=== PATIENT | male | born 1985 | race Hispanic/Latino ===

== ENCOUNTER 2021-06-01 08:06 | Emergency (ER) | payer SELFPAY ==
--- NOTE | ~2021-06-01 | XR_ITS ---
EXAMINATION: XR chest 1V portable INDICATION: Right-sided chest pain TECHNIQUE: Portable AP chest at 1010 hours COMPARISON: None available FINDINGS: The lungs are free of acute opacities. There is no pleural effusion or pneumothorax. The ca rdiomediastinal silhouette is normal. IMPRESSION: 1. No acute cardiopulmonary abnormality. Reviewed, dictated and finalized at location A. ING SAW OPERATOR
--- NOTE | ~2021-06-01 | CT_ITS ---
EXAMINATION: CT abdomen pelvis w con DATE: 06/01/2021 12:45 INDICATION: Right upper quadrant abdominal pain. Left back pain. TECHNIQUE: Computed tomography (CT) of the abdomen and pelvis was performed with 100 mL Omnipaque 350 intravenous contrast. Automated exposure control and iterative reconstruction technique were employe d. The dose-length product was 1086.76 mGy-cm. COMPARISON: None. FINDINGS: The visualized portions of the lung bases demonstrate mild atelectasis. No pleural effusion . The heart size is normal. No pericardial effusion. There is diffuse hepatic steatosis. The gallblad narinder, spleen, pancreas, adrenal glands, and kidneys are normal. There are no dilated loops of bowel. T he appendix is normal. There are no pathologically enlarged lymph nodes. There is no free intraperito gordon fluid. There is mild thoracolumbar spondylosis. IMPRESSION: 1. Diffuse hepatic steatosis. Reviewed, dictated and finalized at location A. NG CUTTER
[2021-06-01 08:29] VITALS: BP 142/94; PULSE 80; RESP 18; TEMP 36.8; O2SAT 97
[2021-06-01] MEDS: KETOROLAC 30 MG/ML VIAL (*BKC) IV PUSH (10:14)
[2021-06-01] MEDS: ONDANSETRON INJ 4 MG/2 ML VIAL IV PUSH (10:15)
[2021-06-01] MEDS: FAMOTIDINE 20 MG/2 ML VIAL IV PUSH (10:15)
[2021-06-01 10:23] LABS: Basophils Percent Auto 0.3 % (0.2-1.2); Eosinophils Absolute Auto 0.1 K/mm3 (0-0.3); Eosinophils Percent Auto 0.7 % (0-4.4); Hematocrit 42.5 % (42.0-52.0); Immature Granulocyte Absolute 0.03 K/mm3 (0.00-0.031); Immature Granulocyte Percent A 0.3 % (0-0.5); Lymphocytes Absolute Auto 2.94 K/mm3 (0.9-3.2); Lymphocytes Percent Auto 31.1 % (18.3-44.2); Mean Corpuscular HGB Conc 35.3 g/dl (32-36); Mean Corpuscular Hemoglobin 30.9 pg (26-34); Mean Corpuscular Volume 87.4 fl (80-100); Mean Platelet Volume 9.7 fl (7.4-10.4); Monocytes Absolute Auto 0.6 K/mm3 (0.1-0.6); Monocytes Percent Auto 6.8 % (2.6-8.5); Neutrophils Absolute Auto 5.7 K/mm3 (1.3-6.7); Neutrophils Percent Auto 60.8 % (45.5-73.1); Platelet Count Result 217 k/mm3 (150-375); Red Blood Count 4.86 M/mm3 (4.6-6.20); Red Cell Distribution Width 12.7 % (11.5-14.5); White Blood Count 9.5 K/mm3 (4.5-10.0)
[2021-06-01 10:35] LABS: Alanine Aminotransferase 102 U/L (4-50); Albumin Level 4.5 g/dL (3.5-5.1); Alkaline Phosphatase 76 U/L (38-126); Anion Gap 10 mmol/L (8-16); Aspartate Amino Transferase 68 U/L (17-59); Bilirubin,Total 1.2 mg/dL (0.2-1.3); Blood Urea Nitrogen 9 mg/dL (9-20); Calcium 8.6 mg/dL (8.4-10.2); Carbon Dioxide 28 mmol/L (22-30); Chloride 101 mmol/L (98-107); Estimated Glomerular Filt Rate > 60; Glucose 229 mg/dL (65-110); Sodium 139 mmol/L (137-145)
[2021-06-01 10:43] LABS: Add Urine Microscopic? YES; Appearance Urine Clear (Clear); Bilirubin Urine Negative (Negative); Color Urine Yellow (Yellow); Glucose Urine UA 3+ mg/dL (Negative); Ketones Urine Negative (Negative); Leukocyte Esterase Ur Negative LEU/UL (Negative); Mucus Urine Few /lpf; Nitrate Urine Negative (Negative); Protein Urine 1+ mg/dL (Negative); RBC Urine 0-2 /hpf (0-2); Specific Grav Ur 1.027 (1.001-1.035); Squamous Epithelial Cell Urine Rare /hpf (Few)
[2021-06-01 10:44] LABS: Blood Urine Negative (Negative)
--- NOTE | 2021-06-01 11:19 | ED.GENADULT ---
HPI - General Adult General Chief complaint: Back Pain/Injury Stated complaint: Flank pain Time Seen by Provider: 06/01/21 09:25 Source: patient and RN notes reviewed Mode of arrival: ambulatory Limitations: no limitations History of Present Illness HPI narrative: Patient is a 36-year-old male who presents to emergency department for evaluation of right CVA region discomfort that began yesterday on satted and then resolved and then intensified again this morning he denies any URI symptoms abdominal discomfort urinary issues denies similar occurrence in the past presents nondistressed has not taken anything for his symptoms on arrival he appears uncomfortable but not distressed he denies any radiation of the pain Related Data Allergies Allergy/AdvReac Type Severity Reaction Status Date / Time No Known Allergies Allergy Verified 06/01/21 08:34 Review of Systems Review of Systems: All systems reviewed & are unremarkable except as noted in HPI and below Exam Narrative: GENERAL: Well-appearing, well-nourished, uncomfortable appearing, and in no acute distress. HEAD: Normocephalic, atraumatic. EYES: PERRLA and EOMI. ENT: Nares clear, no rhinorrhea or epistaxis. Mucous membranes moist. CHEST: Clear to auscultation. No respiratory distress. No wheezes rales or rhonchi. Tenderness in the right CVA region no other deformities noted no rash HEART: Regular rate and rhythm. No murmur heard. Normal peripheral pulses. ABDOMEN: Soft, nontender, nondistended EXTREMITIES: Normal range of motion. No edema. SKIN: Warm, dry, no rash. NEURO: No focal deficits. Alert and oriented x3. PSYCH: Normal mood and affect. Course Course Emergency Course: Patient was evaluated in the emergency department for right CVA pain he was given fluids and medications with improvement he was found to have elevated glucose and fatty liver these could potentially be causing his symptoms given that it is on the right CVA region he is afebrile nontoxic-appearing nondistressed there are no URI symptoms or any pneumonia or hypoxemia he has a nontender abdomen there is no vomiting diarrhea he will be discharged home with outpatient follow-up he has been given indications for return he will follow with the primary care doctor for further evaluation of his elevated blood sugars he does have a family history of diabetes he agrees with the treatment plan and also has been given indications for return and agrees to return if symptoms worsen or concerns Vital Signs Vital signs: Vital Signs Temperature 98.3 F 06/01/21 08:29 Pulse Rate 80 06/01/21 08:29 Respiratory Rate 18 06/01/21 08:29 Blood Pressure 142/94 H 06/01/21 08:29 Pulse Oximetry 97 06/01/21 08:29 Temperature 98.3 F 06/01/21 08:29 Pulse Rate 80 06/01/21 08:29 Respiratory Rate 18 06/01/21 08:29 Blood Pressure 142/94 H 06/01/21 08:29 Pulse Oximetry 97 06/01/21 08:29 Medical Decision Making MDM Narrative Medical decision making narrative: Shira patient's back pain is felt resonable for further risk stratification testing as an outpatient. Pain was not sudden or maximal in onset without tearing or ripping. quality. No other signs or symptoms to suggest aortic dissection. A low-risk Wells criteria is noted. PE is felt to be unlikely. No pneumonia or URI symptoms were seen on evaluation today. Patient is felt to be reasonable for continued evaluation as an outpatient. Vital Signs Vital Signs: Vital Signs Temperature 98.3 F 06/01/21 08:29 Pulse Rate 80 06/01/21 08:29 Respiratory Rate 18 06/01/21 08:29 Blood Pressure 142/94 H 06/01/21 08:29 Pulse Oximetry 97 06/01/21 08:29 Temperature 98.3 F 06/01/21 08:29 Pulse Rate 80 06/01/21 08:29 Respiratory Rate 18 06/01/21 08:29 Blood Pressure 142/94 H 06/01/21 08:29 Pulse Oximetry 97 06/01/21 08:29 Lab Data Result diagrams: 06/01/21 10:09 06/01/21 10:09 Labs: Lab Results
[2021-06-01 11:56] LABS: D Dimer < 0.22 ug/mL (<0.48)
[2021-06-01 13:00] LABS: Lipase 43 U/L (23-300)
[2021-06-01 14:07] VITALS: BP 157/87; PULSE 67; RESP 14; TEMP 36.8; O2SAT 97
== END 2021-06-01 14:08 | disposition home or self-care (01) ==
PROVIDERS: Emergency Medicine Emergency Medical Services; Emergency Provider Emergency Medicine
DX: R73.9 Hyperglycemia, unspecified (principal); K76.0 Fatty (change of) liver, not elsewhere classified; M54.6 Pain in thoracic spine
CPT/HCPCS: 36415; 71045; 74177; 80053; 81001; 83690; 85025; 85380; 87086; 96374; 96375; 99284; J1885; J2405; Q9967

== ENCOUNTER 2023-03-28 17:56 | Emergency (ER) | payer SELFPAY ==
[2023-03-28 18:02] VITALS: BP 136/79; PULSE 84; RESP 14; TEMP 36.5; O2SAT 99
[2023-03-28 18:09] LABS: Glucose Point of Care 289 mg/dl (65-105)
[2023-03-28 21:27] VITALS: BP 132/86; PULSE 77; RESP 15; O2SAT 97
[2023-03-28 21:27] LABS: Glucose Point of Care 281 mg/dl (65-105)
--- NOTE | 2023-03-28 22:12 | ED.GENADULT ---
HPI - General Adult General Chief complaint: Recheck/Abnormal Lab/Rx Stated complaint: high bg Time Seen by Provider: 03/28/23 21:25 History of Present Illness HPI narrative: patient presents the emergency department with concern for high a her glycemia. He had been drinking an excessive amount of Coca-Cola and Red Bull. He started to have symptoms of not feeling well, headaches, urinating a lot. His started checking his blood sugars and they were elevated anywhere from 2-400. Stop drinking his high sugar drinks a week ago but symptoms have persisted as well as the hyperglycemia. He scheduled an appointment with new primary care doctor but it is 6 weeks out. Patient is pleasant and no overal Related Data Allergies Allergy/AdvReac Type Severity Reaction Status Date / Time No Known Allergies Allergy Verified 06/01/21 08:34 Review of Systems Review of Systems: negative except for what is documented in the HPI Exam Narrative: GENERAL: Well-appearing, well-nourished, and in no acute distress. HEAD: Normocephalic, atraumatic. EYES: PERRLA and EOMI. ENT: Nares clear, no rhinorrhea or epistaxis. Mucous membranes moist. NECK: Supple. CHEST: Clear to auscultation. No respiratory distress. HEART: Regular rate and rhythm. ABDOMEN: Soft, nontender, nondistended. EXTREMITIES: Normal range of motion. No edema. SKIN: Warm, dry, no rash. NEURO: No focal deficits. Alert and oriented x3. PSYCH: Normal mood and affect. Course Course Emergency Course: hyperglycemia has been persistent despite stopping drinking high sugar drinks. Will DC home with metformin. Will give strict precautions for when to stop taking it prior to seeing the new physician. Shared decision making with him regarding this plan Vital Signs Vital signs: Vital Signs Temperature 36.5 C 03/28/23 18:02 Pulse Rate 84 03/28/23 18:02 Respiratory Rate 14 03/28/23 18:02 Blood Pressure 136/79 03/28/23 18:02 Pulse Oximetry 99 03/28/23 18:02 Temperature 36.5 C 03/28/23 18:02 Pulse Rate 77 03/28/23 21:27 Respiratory Rate 15 03/28/23 21:27 Blood Pressure 132/86 03/28/23 21:27 Pulse Oximetry 97 03/28/23 21:27 Medical Decision Making Vital Signs Vital Signs: Vital Signs Temperature 36.5 C 03/28/23 18:02 Pulse Rate 84 03/28/23 18:02 Respiratory Rate 14 03/28/23 18:02 Blood Pressure 136/79 03/28/23 18:02 Pulse Oximetry 99 03/28/23 18:02 Temperature 36.5 C 03/28/23 18:02 Pulse Rate 77 03/28/23 21:27 Respiratory Rate 15 03/28/23 21:27 Blood Pressure 132/86 03/28/23 21:27 Pulse Oximetry 97 03/28/23 21:27 Lab Data Labs: Lab Results 03/28/23 03/28/23 Range/Units 18:05 21:25 POC Capillary Glucose 289 H 281 H (65-105) mg/dl Discharge Plan Discharge Clinical Impression: Hyperglycemia Patient Disposition: Home, Self-Care Condition: Stable Instructions: Antibiotic Form Prescriptions: New metformin 500 mg tablet 500 mg PO DAILY Qty: 60 0RF No Action famotidine [Pepcid] 20 mg tablet 20 mg PO BID Qty: 14 0RF cyclobenzaprine 10 mg tablet 10 mg PO TID PRN (Reason: muscle spasm) Qty: 14 0RF naproxen 500 mg tablet 500 mg PO BID PRN (Reason: pain) Qty: 7 0RF Follow-up/Referrals: UNKNOWN,DOCTOR [Primary Care Provider] - Time of Disposition: 22:14
[2023-03-28 22:19] VITALS: BP 116/71; PULSE 72; RESP 15; O2SAT 100
[2023-03-28] MEDS: metFORMIN HCL 500 MG TABLET PO (22:19)
== END 2023-03-28 22:26 | disposition home or self-care (01) ==
PROVIDERS: Emergency Provider Emergency Medicine
DX: R73.9 Hyperglycemia, unspecified (principal)
CPT/HCPCS: 82948; 99283; A9270